=== PATIENT | male | born 1955 | race Caucasian/White ===

== ENCOUNTER 2017-05-17 14:59 | Observation (INO) | payer OTHER ==
[2017-05-17] MEDS ORDERED: Sodium Chloride 0.9% 2.5 ML Syringe FLUSH PRN (15:04)
[2017-05-17] MEDS ORDERED: Sodium Chloride 0.9% 10 ML Syringe FLUSH PRN (15:04)
--- NOTE | 2017-05-17 15:20 | EDM.PDOC ---
ED HPI GENERAL MEDICAL PROBLEM - General Chief Complaint: Neuro Symptoms/Deficits Stated Complaint: RT EYE HURTS Time Seen by Provider: 05/17/17 15:03 Source of Information: Reports: Patient History Limitations: Reports: No Limitations - History of Present Illness INITIAL COMMENTS - FREE TEXT/NARRATIVE: History of present illness: []At approximate 10:30 this morning patient had a 10 minute episode of loss of the bottom half of his vision in his right eye. He denies any headache, nausea, vomiting, dizziness, numbness, tingling or previous episodes of visual loss. Patient states he does have high blood pressure that is intermittently elevated as not take meds. Patient was seen in ophthalmology's office Review of systems: As per history of present illness and below otherwise all systems reviewed and negative. Past medical history: As per history of present illness and as reviewed below otherwise noncontributory. Surgical history: As per history of present illness and as reviewed below otherwise noncontributory. Social history: No reported history of drug or alcohol abuse. Family history: As per history of present illness and as reviewed below otherwise noncontributory. Physical exam: General: Well developed, well nourished in NAD HEENT: Atraumatic, normocephalic, pupils reactive, negative for conjunctival pallor or scleral icterus, mucous membranes moist, throat clear, neck supple, nontender, trachea midline. Lungs: Clear to auscultation, breath sounds equal bilaterally, chest nontender. Heart: S1S2, regular, negative for clicks, rubs, or JVD. Abdomen: Soft, nondistended, nontender. Negative for masses or hepatosplenomegaly. Negative for costovertebral tenderness. Pelvis: Stable nontender. Genitourinary: Deferred. Rectal: Deferred. Extremities: Atraumatic, negative for cords or calf pain. Neurovascular unremarkable. Neuro: Awake, alert, oriented. Cranial nerves II through XII unremarkable. Cerebellum unremarkable. Motor and sensory unremarkable throughout. Exam nonfocal. Diagnostics: []CT head negative, EKG normal sinus rhythm with no ischemic changes, Therapeutics: [] Impression: []TIA with isolated ocular symptoms, hypertension Plan: []Admit to hospitalist for workup Definitive disposition and diagnosis as appropriate pending reevaluation and review of above. - Related Data Allergies Allergy/AdvReac Type Severity Reaction Status Date / Time No Known Allergies Allergy Verified 05/17/17 15:09 Home Meds: Home Meds . [No Known Home Meds] 05/17/17 [History] Past Medical History - Past Health History Medical/Surgical History: Denies Medical/Surgical History - Infectious Disease History Infectious Disease History: Reports: Chicken Pox, Measles, Mumps Social & Family History - Family History Family Medical History: Noncontributory - Tobacco Use Smoking Status *Q: Current Every Day Smoker Years of Tobacco use: 40 Packs/Tins Daily: 3 - Caffeine Use Caffeine Use: Reports: None - Alcohol Use Days Per Week of Alcohol Use: 7 Number of Drinks Per Day: 2 Total Drinks Per Week: 14 - Recreational Drug Use Recreational Drug Use: No ED ROS GENERAL - Review of Systems Review Of Systems: See Below (See history of present illness) ED EXAM, NEURO - Physical Exam Exam: See Below (See history of present illness) Course - Vital Signs Last Recorded V/S: Last Vital Signs Temp 36.6 C 05/18/17 03:00 Pulse 80 05/18/17 03:00 Resp 19 05/18/17 03:00 BP 116/78 05/18/17 03:00 Pulse Ox 92 L 05/18/17 03:00 - Orders/Labs/Meds Orders: Active Orders 24 hr Category Date Time Status EKG Documentation Completion [RC] STAT Care 05/17/17 15:03 Active Sodium Chloride 0.9% [Saline Flush] Med 05/17/17 15:04 Active 10 ml FLUSH ASDIRECTED PRN Sodium Chloride 0.9% [Saline Flush] Med 05/17/17 15:04 Active 2.5 ml FLUSH ASDIRECTED PRN Saline Lock Insert [OM.PC] Stat Oth 05/17/17 15:03 Ordered Medication Orders Atorvastatin Calcium (Lipitor) 80 mg PO BEDTIME TAMMY Sodium Chloride (Saline Flush) 10 ml FLUSH ASDIRECTED PRN PRN Reason: Keep Vein Open Last Admin: 05/17/17 15:15 Dose: 10 ml Sodium Chloride (Saline Flush) 2.5 ml FLUSH ASDIRECTED PRN PRN Reason: Keep Vein Open Last Admin: 05/17/17 15:16 Dose: 2.5 ml Labs: Laboratory Tests 05/17/17 05/17/17 05/17/17 Range/Units 15:14 15:14 15:14 WBC 7.76 (4.0-11.0) K/uL RBC 4.81 (4.50-5.90) M/uL Hgb 16.3 (13.0-17.0) g/dL Hct 48.0 (38.0-50.0) % MCV 99.8 H (80.0-98.0) fL MCH 33.9 H (27.0-32.0) pg MCHC 34.0 (31.0-37.0) g/dL RDW Std Deviation 50.3 (28.0-62.0) fl RDW Coeff of Oli 14 (11.0-15.0) % Plt Count 178 (150-400) K/uL MPV 11.50 (7.40-12.00) fL Neut % (Auto) 50.6 (48.0-80.0) % Lymph % (Auto) 36.6 (16.0-40.0) % [place] % (Auto) 10.4 (0.0-15.0) % Eos % (Auto) 1.9 (0.0-7.0) % Baso % (Auto) 0.5 (0.0-1.5) % Neut # (Auto) 3.9 (1.4-5.7) K/uL Lymph # (Auto) 2.8 H (0.6-2.4) K/uL [place] # (Auto) 0.8 (0.0-0.8) K/uL Eos # (Auto) 0.2 (0.0-0.7) K/uL Baso # (Auto) 0.0 (0.0-0.1) K/uL Nucleated RBC % 0.0 /100WBC Nucleated RBCs # 0 K/uL INR 1.02 (0.86-1.11) APTT 26.6 (18.6-31.3) SEC Sodium 139 (136-146) mmol/L Potassium 4.0 (3.5-5.1) mmol/L Chloride 107 (98-110) mmol/L Carbon Dioxide 22 (21-31) mmol/L BUN 14 (6.0-23.0) mg/dL Creatinine 1.0 (0.6-1.5) mg/dL Est Cr Clr Drug Dosing 87.30 mL/min Estimated GFR (MDRD) > 60.0 ml/min Glucose 93 (60-110) mg/dL Hemoglobin A1c (0.0-6.0) % Calcium 9.3 (8.8-10.8) mg/dL Total Bilirubin 0.6 (0.1-1.5) mg/dL AST 25 (5-40) IU/L ALT 34 (8-54) IU/L Alkaline Phosphatase 52 (40-150) Troponin I (0.0-0.29) NG/ML Total Protein 7.5 (6.0-8.0) g/dL Albumin 4.0 (3.5-5.0) g/dL Globulin 3.5 (2.0-3.5) g/dL Albumin/Globulin Ratio 1.1 L (1.3-2.8) 05/17/17 05/17/17 Range/Units 15:14 15:14 WBC (4.0-11.0) K/uL RBC (4.50-5.90) M/uL Hgb (13.0-17.0) g/dL Hct (38.0-50.0) % MCV (80.0-98.0) fL MCH (27.0-32.0) pg MCHC (31.0-37.0) g/dL RDW Std Deviation (28.0-62.0) fl RDW Coeff of Oli (11.0-15.0) % Plt Count (150-400) K/uL MPV (7.40-12.00) fL Neut % (Auto) (48.0-80.0) % Lymph % (Auto) (16.0-40.0) % [place] % (Auto) (0.0-15.0) % Eos % (Auto) (0.0-7.0) % Baso % (Auto) (0.0-1.5) % Neut # (Auto) (1.4-5.7) K/uL Lymph # (Auto) (0.6-2.4) K/uL [place] # (Auto) (0.0-0.8) K/uL Eos # (Auto) (0.0-0.7) K/uL Baso # (Auto) (0.0-0.1) K/uL Nucleated RBC % /100WBC Nucleated RBCs # K/uL INR (0.86-1.11) APTT (18.6-31.3) SEC Sodium (136-146) mmol/L Potassium (3.5-5.1) mmol/L Chloride (98-110) mmol/L Carbon Dioxide (21-31) mmol/L BUN (6.0-23.0) mg/dL Creatinine (0.6-1.5) mg/dL Est Cr Clr Drug Dosing mL/min Estimated GFR (MDRD) ml/min Glucose (60-110) mg/dL Hemoglobin A1c 6.2 H (0.0-6.0) % Calcium (8.8-10.8) mg/dL Total Bilirubin (0.1-1.5) mg/dL AST (5-40) IU/L ALT (8-54) IU/L Alkaline Phosphatase (40-150) Troponin I < 0.10 (0.0-0.29) NG/ML Total Protein (6.0-8.0) g/dL Albumin (3.5-5.0) g/dL Globulin (2.0-3.5) g/dL Albumin/Globulin Ratio (1.3-2.8) Meds: Medications Generic Name Dose Route Start Last Admin Trade Name Freq PRN Reason Stop Dose Admin Atorvastatin Calcium 80 mg 05/18/17 21:00 Lipitor PO BEDTIME TAMMY Sodium Chloride 10 ml 05/17/17 15:04 05/17/17 15:15 Saline Flush FLUSH 10 ml ASDIRECTED PRN Administration Keep Vein Open Sodium Chloride 2.5 ml 05/17/17 15:04 05/17/17 15:16 Saline Flush FLUSH 2.5 ml ASDIRECTED PRN Administration Keep Vein Open Discontinued Medications Generic Name Dose Route Start Last Admin Trade Name Freq PRN Reason Stop Dose Admin Aspirin 324 mg 05/17/17 16:31 05/17/17 16:56 Aspirin PO 05/17/17 16:32 324 mg ONETIME ONE Administration Atorvastatin Calcium 80 mg 05/17/17 19:50 05/17/17 22:16 Lipitor PO 05/17/17 19:51 80 mg BEDTIME ONE Administration Atorvastatin Calcium 80 mg 05/17/17 22:07 05/17/17 22:17 Lipitor PO 05/17/17 22:08 Not Given ONETIME ONE Gadobenate Dimeglumine 20 ml 05/17/17 20:12 05/17/17 20:12 Multihance IVPUSH 05/17/17 20:13 20 ml ONETIME STA Administration Departure - Departure Time of Disposition: 17:15 Disposition: Admitted As Inpatient 68 Condition: Good Clinical Impression: TIA (transient ischemic attack) Qualifiers: Transient cerebral ischemia type: unspecified Qualified Code(s): G45.9 - Transient cerebral ischemic attack, unspecified - Discharge Information - My Orders Last 24 Hours: My Active Orders 05/17/17 15:03 EKG Documentation Completion [RC] STAT Saline Lock Insert [OM.PC] Stat 05/17/17 15:04 Sodium Chloride 0.9% [Saline Flush] 10 ml FLUSH ASDIRECTED PRN Sodium Chloride 0.9% [Saline Flush] 2.5 ml FLUSH ASDIRECTED PRN - Assessment/Plan Last 24 Hours: My Active Orders 05/17/17 15:03 EKG Documentation Completion [RC] STAT Saline Lock Insert [OM.PC] Stat 05/17/17 15:04 Sodium Chloride 0.9% [Saline Flush] 10 ml FLUSH ASDIRECTED PRN Sodium Chloride 0.9% [Saline Flush] 2.5 ml FLUSH ASDIRECTED PRN
[2017-05-17 15:52] LABS: CHLORIDE,CL 107 mmol/L (98-110); SODIUM,NA 139 mmol/L (136-146)
--- NOTE | 2017-05-17 15:58 | CT ---
EXAMINATION: Non contrast CT head. Coronal and sagittal reformats. HISTORY: Pain FINDINGS: No evidence of intra or extra axial hemorrhage, mass, midline shift, hydrocephalus or edema. No hypoattenuation changes in the major vascular territories to suggest acute infarct. No abnormal intracranial calcifications are detected. No evidence of substantial vascular calcificat ions. Mild mucosal thickening is noted within the frontal sinuses and ethmoid air cells. The mastoid air ce lls are clear. The orbits and globes are symmetric. Pituitary fossa appears unremarkable. Calvarium is intact. No evidence of skull fracture. IMPRESSION: No acute intracranial findings.
[2017-05-17] MEDS ORDERED: Aspirin 81 MG Tab.Chew PO ONE (16:31)
[2017-05-17] MEDS ORDERED: atorvaSTATin 40 MG Tab PO ONE ×2 (19:50→22:07)
--- NOTE | 2017-05-17 19:50 | PCM.HP ---
H&P History of Present Illness - General Admit Problem/Dx: Admission Diagnosis/Problem Admission Diagnosis/Problem TIA, Transient ischemic attack - History of Present Illness Initial Comments - Free Text/Narative: 61 yo male who this morning had a brief loss of vision of the lower half of his right eye. He went to his opthalmologist who referred him to the ER. CT of his head was unremarkable. He denies any numbness or weakness. - Related Data Allergies/Adverse Reactions: Allergies Allergy/AdvReac Type Severity Reaction Status Date / Time No Known Allergies Allergy Verified 05/17/17 15:09 Home Medications: Home Meds . [No Known Home Meds] 05/17/17 [History] Past Medical History - Past Health History Medical/Surgical History: Denies Medical/Surgical History - Infectious Disease History Infectious Disease History: Reports: Chicken Pox, Measles, Mumps Social & Family History - Family History Family Medical History: Noncontributory - Tobacco Use Smoking Status *Q: Current Every Day Smoker Years of Tobacco use: 40 Packs/Tins Daily: 3 - Caffeine Use Caffeine Use: Reports: None - Alcohol Use Days Per Week of Alcohol Use: 7 Number of Drinks Per Day: 2 Total Drinks Per Week: 14 - Recreational Drug Use Recreational Drug Use: No H&P Review of Systems - Review of Systems: Review Of Systems: ROS reveals no pertinent complaints other than HPI. Exam - Exam Exam: See Below - Vital Signs Vital Signs: Last Vital Signs Temp 36.8 C 05/17/17 18:24 Pulse 74 05/17/17 18:24 Resp 18 05/17/17 18:24 BP 178/98 H 05/17/17 18:24 Pulse Ox 94 L 05/17/17 18:24 Weight: 122.697 kg - Exam General: Alert, Oriented HEENT: EOMI, Mucosa Moist & [place], Posterior Pharynx Clear Neck: Supple Lungs: Clear to Auscultation, Normal Respiratory Effort GI/Abdominal Exam: Normal Bowel Sounds, Soft, Non-Tender, No Organomegaly Extremities: Normal Inspection, No Pedal Edema Skin: Warm, Dry, Intact Neurological: Cranial Nerves Intact, Reflexes Equal Bilateral, Strength Equal Bilateral, Normal Gait, Normal Speech, Normal Tone, Sensation Intact. No: Focal Deficit - Patient Data Result Diagrams: 05/17/17 15:14 05/17/17 15:14 *Q Meaningful Use (ADM) - VTE *Q VTE Criteria *Q: - Stroke *Q Stroke Criteria *Q: - AMI *Q AMI Criteria *Q: Problem List Initiated/Reviewed/Updated: Yes Orders Last 24hrs: Active Orders 24 hr Category Date Time Status Antiembolic Devices [RC] PER UNIT ROUTINE Care 05/17/17 19:43 Ordered Cardiac Monitoring [RC] . DIRECTED Care 05/17/17 18:12 Active Cardiac Monitoring [RC] . DIRECTED Care 05/17/17 18:38 Active Oxygen Therapy [RC] PRN Care 05/17/17 19:43 Ordered Telemetry Monitoring [Cardiac Monitoring] [RC] . Care 05/17/17 16:53 Active DIRECTED Up ad Mary [RC] ASDIRECTED Care 05/17/17 19:43 Ordered VTE/DVT Education [RC] PER UNIT ROUTINE Care 05/17/17 19:43 Ordered Vital Signs [RC] Q4H Care 05/17/17 19:43 Ordered Regular Diet [DIET] Diet 05/17/17 Dinner Active Ang Head wo Cont [MR] Routine Exams 05/17/17 16:51 Ordered Ang Neck wo Cont [MR] Routine Exams 05/17/17 16:51 Ordered Brain w wo Cont [MR] Routine Exams 05/17/17 16:51 Ordered Echo 2D wo Cont [US] Routine Exams 05/17/17 16:51 Ordered LIPID PANEL [CHEM] AM Lab 05/18/17 05:11 Ordered Sequential Compression Device [OM.PC] Per Unit Routine Oth 05/17/17 19:43 Ordered Resuscitation Status Routine Resus Stat 05/17/17 19:43 Ordered Medication Orders Sodium Chloride (Saline Flush) 10 ml FLUSH ASDIRECTED PRN PRN Reason: Keep Vein Open Last Admin: 05/17/17 15:15 Dose: 10 ml Sodium Chloride (Saline Flush) 2.5 ml FLUSH ASDIRECTED PRN PRN Reason: Keep Vein Open Last Admin: 05/17/17 15:16 Dose: 2.5 ml Assessment/Plan Comment:: 61 yo male who presents with temporary vision loss of right eye concerning for TIA. HE had no events on telemetry overnight. He reports his no problems with vision this morning. MRI of the head reported no acute patholgy with presumed mild small-vessel ischemic changes, MRA head and neck was unremarkable. Echocardiogram reported LVEF of 60%. He is requesting discharge. He was discharge home with aspirin 325mg daily and Atorvastatin 80mg daily.
[2017-05-17] MEDS ORDERED: Gadobenate Dimeglumine 529 MG/ML 20 ML SDV IVPUSH STA (20:12)
--- NOTE | 2017-05-18 12:10 | MR ---
EXAM DATE: 05/17/17 PATIENT'S AGE: 61 Patient: DOROTHY ARANDA Facility: [place], [place] Site . Site : 1955 Study: MRI Neck Angio Angio [id number]/21/2017 9:02:54 PM Ordering Physician: Nyasia Lyons Final Report: Indication: TIA Technique: MRI Head: Performed before and after IV gadolinium. MRA Head: Performed without IV contrast. MRA Neck: Performed without IV contrast Contrast: 10 cc Gadavist Comparison: None available Findings: MRI Head: Several tiny foci of nonenhancing T2 signal abnormality are scattered in the white matter of the cerebral hemispheres, compatible left small-vessel ischemic change. No evidence for acute infarct or restricted diffusion. No recent or remote hemorrhage is identified. No intracranial mass effect. No ventricular obstruction. No cortical abnormality is identified. No abnormal contrast enhancement involving the brain parenchyma, meninges, calvarium or skull base. Grossly normal flow voids are maintained in the directly imaged intracranial vascular structures. The craniovertebral junction is unremarkable, with a patent foramen magnum. Both temporal bones are clear. There is slight membrane thickening in the ethmoid paranasal sinuses. 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 No occlusion/filling defect or acquired arterial stenosis identified. No aneurysm or vascular malformation seen. MRA Neck: The acquisitions are somewhat degraded by patient motion artifact. No evidence for hemodynamically significant stenosis in the visualized segments of the internal carotid arteries by NASCET criteria. The visualized cervical segments of both vertebral arteries are patent; the origins of these vessels are suboptimally imaged. The aortic arch, great vessel origins and proximal subclavian arteries are not well evaluated on these acquisitions. Impression: MRI Head: 1. No acute pathology identified. No evidence for mass, hemorrhage or recent infarct. 2. Presumed mild small-vessel ischemic changes. 3. Slight paranasal sinus inflammatory change. MRA Head: 1. 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 Examination otherwise unremarkable. MRA Neck: 1. No evidence for hemodynamically significant ICA stenosis by NASCET criteria. 2. No evidence for carotid or vertebral artery dissection in the visualized segments of these vessels. Dictated by Mahesh Davila MD @ May 18 2017 6:43AM (Electronic Signature) Report Signed by Proxy. JORDAN
--- NOTE | 2017-05-18 12:11 | MR ---
EXAM DATE: 05/17/17 PATIENT'S AGE: 61 Patient: DOROTHY ARANDA Facility: [place], [place] Site . Site : 1955 Study: MRI Head Angio [id number]/21/2017 9:03:25 PM Ordering Physician: Nyasia Lyons Final Report: Indication: TIA Technique: MRI Head: Performed before and after IV gadolinium. MRA Head: Performed without IV contrast. MRA Neck: Performed without IV contrast Contrast: 10 cc Gadavist Comparison: None available Findings: MRI Head: Several tiny foci of nonenhancing T2 signal abnormality are scattered in the white matter of the cerebral hemispheres, compatible left small-vessel ischemic change. No evidence for acute infarct or restricted diffusion. No recent or remote hemorrhage is identified. No intracranial mass effect. No ventricular obstruction. No cortical abnormality is identified. No abnormal contrast enhancement involving the brain parenchyma, meninges, calvarium or skull base. Grossly normal flow voids are maintained in the directly imaged intracranial vascular structures. The craniovertebral junction is unremarkable, with a patent foramen magnum. Both temporal bones are clear. There is slight membrane thickening in the ethmoid paranasal sinuses. 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 No occlusion/filling defect or acquired arterial stenosis identified. No aneurysm or vascular malformation seen. MRA Neck: The acquisitions are somewhat degraded by patient motion artifact. No evidence for hemodynamically significant stenosis in the visualized segments of the internal carotid arteries by NASCET criteria. The visualized cervical segments of both vertebral arteries are patent; the origins of these vessels are suboptimally imaged. The aortic arch, great vessel origins and proximal subclavian arteries are not well evaluated on these acquisitions. Impression: MRI Head: 1. No acute pathology identified. No evidence for mass, hemorrhage or recent infarct. 2. Presumed mild small-vessel ischemic changes. 3. Slight paranasal sinus inflammatory change. MRA Head: 1. 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 Examination otherwise unremarkable. MRA Neck: 1. No evidence for hemodynamically significant ICA stenosis by NASCET criteria. 2. No evidence for carotid or vertebral artery dissection in the visualized segments of these vessels. Dictated by Mahesh Davila MD @ May 18 2017 6:44AM (Electronic Signature) Report Signed by Proxy. JORDAN
--- NOTE | 2017-05-18 12:12 | MR ---
EXAM DATE: 05/17/17 PATIENT'S AGE: 61 Patient: DOROTHY ARANDA Facility: [place], [place] Site . Site : 1955 Study: MRI Head W/ and W/O Cont [id number]/21/2017 9:06:28 PM Ordering Physician: Nyasia Lyons Final Report: Indication: TIA Technique: MRI Head: Performed before and after IV gadolinium. MRA Head: Performed without IV contrast. MRA Neck: Performed without IV contrast Contrast: 10 cc Gadavist Comparison: None available Findings: MRI Head: Several tiny foci of nonenhancing T2 signal abnormality are scattered in the white matter of the cerebral hemispheres, compatible left small-vessel ischemic change. No evidence for acute infarct or restricted diffusion. No recent or remote hemorrhage is identified. No intracranial mass effect. No ventricular obstruction. No cortical abnormality is identified. No abnormal contrast enhancement involving the brain parenchyma, meninges, calvarium or skull base. Grossly normal flow voids are maintained in the directly imaged intracranial vascular structures. The craniovertebral junction is unremarkable, with a patent foramen magnum. Both temporal bones are clear. There is slight membrane thickening in the ethmoid paranasal sinuses. 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 No occlusion/filling defect or acquired arterial stenosis identified. No aneurysm or vascular malformation seen. MRA Neck: The acquisitions are somewhat degraded by patient motion artifact. No evidence for hemodynamically significant stenosis in the visualized segments of the internal carotid arteries by NASCET criteria. The visualized cervical segments of both vertebral arteries are patent; the origins of these vessels are suboptimally imaged. The aortic arch, great vessel origins and proximal subclavian arteries are not well evaluated on these acquisitions. Impression: MRI Head: 1. No acute pathology identified. No evidence for mass, hemorrhage or recent infarct. 2. Presumed mild small-vessel ischemic changes. 3. Slight paranasal sinus inflammatory change. MRA Head: 1. origin of the left OBGYN NURSE 2. Examination otherwise unremarkable. MRA Neck: 1. No evidence for hemodynamically significant ICA stenosis by NASCET criteria. 2. No evidence for carotid or vertebral artery dissection in the visualized segments of these vessels. Dictated by Mahesh Davila MD @ May 18 2017 6:32AM (Electronic Signature) Report Signed by Proxy. JORDAN
[2017-05-18 13:33] VITALS: BP 177/89
[2017-05-18] MEDS ORDERED: atorvaSTATin 40 MG Tab PO SCH (21:00)
--- NOTE | 2017-05-22 13:49 | ECHO ---
EXAM DATE: 05/17/17 PATIENT'S AGE: 61 The echocardiogram report can be seen in this patient's EMR (Electronic Medical Record) in the Reports section. The report has also been scanned into PACS. JORDAN
== END 2017-05-18 13:45 | disposition home or self-care (01) ==
LOC: MW.ED 14:59 → MW.MS 16:28
PROVIDERS: ADMIT Internal Medicine; ATTEND Internal Medicine
DX: G45.9 Transient cerebral ischemic attack, unspecified (principal); F17.210 Nicotine dependence, cigarettes, uncomplicated
CPT/HCPCS: 36415; 70450; 70544; 70547; 70553; 80053; 80061; 83036; 84484; 85025; 85610; 85730; 93005; 93306; 99285; A9270; A9577; G0378; 99283